=== PATIENT | female | born 1995 | race Caucasian/White ===

== ENCOUNTER 2016-12-21 03:57 | Emergency (ER) | payer MEDICAID ==
[~2016-12-21] VITALS: Ht 157.5 cm; Wt 47.2 kg
[2016-12-21 04:32] LABS: BASOPHIL % 0.4 % (0-2); PLATELET COUNT 241 x10^3mcL (130-400); RED CELL DISTRIBUTION WIDTH 12.8 % (11.5-14.5)
[2016-12-21 04:33] LABS: UA SPECIFIC GRAVITY 1.025 (1.005-1.035); microscopic required? YES; urine erythrocyte 3+ (NEGATIVE)
[2016-12-21 04:36] LABS: CARBON DIOXIDE 25.5 mmol/L (21-32); CHLORIDE SERUM 105 mmol/L (98-107); CREATININE SERUM 0.8 mg/dL (0.6-1.0); GFR1 > 60 mL/min; GLUCOSE SERUM 99 mg/dL (74-106); POTASSIUM SERUM 3.7 mmol/L (3.5-5.1); SODIUM SERUM 141 mmol/L (136-145)
[2016-12-21 04:40] LABS: ALBUMIN 4.4 g/dL (3.4-5.0); ALKALINE PHOSPHATASE 52 U/L (46-116); ALT/SGPT 17 U/L (14-59); AST/SGOT 14 U/L (15-37); BILIRUBIN TOTAL 0.76 mg/dL (0.20-1.00); TOTAL PROTEIN, SERUM 7.7 g/dL (6.4-8.2)
[2016-12-21 06:50] VITALS: BP 122/78
== END 2016-12-21 06:50 | disposition home or self-care (01) ==
LOC: ED 03:57
PROVIDERS: Emergency Medicine
DX: R10.31 Right lower quadrant pain (principal); R11.0 Nausea
CPT/HCPCS: J1885; Q0092

== ENCOUNTER 2017-04-02 03:13 | Emergency (ER) | payer MEDICAID ==
[2017-04-02 05:48] VITALS: BP 119/59
== END 2017-04-02 05:48 | disposition left against medical advice (07) ==
LOC: ED 03:13
DX: Z53.21 Procedure and treatment not carried out due to patient leaving prior to being seen by health care provider (principal)

== ENCOUNTER 2017-10-03 08:38 | Emergency (ER) | payer MEDICAID ==
[~2017-10-03] VITALS: Ht 157.5 cm; Wt 47.2 kg
[2017-10-03 09:34] VITALS: Ht 157.5 cm; Wt 47.2 kg
[2017-10-03 11:24] VITALS: BP 96/69
== END 2017-10-03 11:24 | disposition home or self-care (01) ==
LOC: ED 08:38
DX: R05 Cough (principal); R06.02 Shortness of breath
CPT/HCPCS: J7620

== ENCOUNTER 2018-05-11 12:12 | Emergency (ER) | payer MEDICAID ==
[~2018-05-11] VITALS: Ht 157.5 cm; Wt 45.9 kg
[2018-05-11 12:15] VITALS: BP 127/81
[2018-05-11 12:41] LABS: BASOPHIL % 0.5 % (0-2); PLATELET COUNT 300 x10^3mcL (130-400); RED CELL DISTRIBUTION WIDTH 12.8 % (11.5-14.5)
[2018-05-11 13:17] LABS: CALCIUM 9.1 mg/dL (8.5-10.1); CARBON DIOXIDE 26.9 mmol/L (21-32); CHLORIDE SERUM 105 mmol/L (98-107); CREATININE SERUM 0.6 mg/dL (0.6-1.0); GFR1 > 60 mL/min; GLUCOSE SERUM 106 mg/dL (74-106); POTASSIUM SERUM 3.5 mmol/L (3.5-5.1); SODIUM SERUM 139 mmol/L (136-145)
== END 2018-05-11 13:29 | disposition home or self-care (01) ==
LOC: ED 12:12
PROVIDERS: Emergency Medicine
DX: R53.1 Weakness (principal); J04.0 Acute laryngitis; R42 Dizziness and giddiness; R11.0 Nausea
CPT/HCPCS: 36415; J7512

== ENCOUNTER 2018-11-04 09:19 | Emergency (ER) | payer MEDICAID ==
[~2018-11-04] VITALS: Ht 157.5 cm; Wt 46.7 kg
[2018-11-04 09:35] VITALS: BP 103/44; Ht 157.5 cm; Wt 46.7 kg
== END 2018-11-04 10:16 | disposition home or self-care (01) ==
LOC: ED 09:19
DX: N30.00 Acute cystitis without hematuria (principal)

== ENCOUNTER 2019-01-22 09:41 | Emergency (ER) | payer MEDICAID ==
[~2019-01-22] VITALS: Ht 157.5 cm; Wt 46.3 kg
[2019-01-22 09:42] VITALS: Ht 157.5 cm; Wt 46.3 kg
[2019-01-22 11:02] VITALS: BP 108/72
== END 2019-01-22 11:02 | disposition home or self-care (01) ==
LOC: ED 09:41
DX: J03.00 Acute streptococcal tonsillitis, unspecified (principal); Z98.890 Other specified postprocedural states
CPT/HCPCS: J1100

== ENCOUNTER 2019-05-30 08:19 | Emergency (ER) | payer MEDICAID ==
[~2019-05-30] VITALS: Ht 157.5 cm; Wt 48.3 kg
[2019-05-30 08:24] VITALS: Ht 157.5 cm; Wt 48.3 kg
[2019-05-30 09:13] LABS: PLATELET COUNT 236 x10^3mcL (130-400); RED CELL DISTRIBUTION WIDTH 12.4 % (11.5-14.5)
[2019-05-30 09:20] LABS: CALCIUM 8.9 mg/dL (8.5-10.1); CARBON DIOXIDE 24.9 mmol/L (21-32); CHLORIDE SERUM 103 mmol/L (98-107); CREATININE SERUM 0.7 mg/dL (0.6-1.0); GFR1 > 60 mL/min; GLUCOSE SERUM 85 mg/dL (74-106); POTASSIUM SERUM 4.3 mmol/L (3.5-5.1); SODIUM SERUM 141 mmol/L (136-145)
[2019-05-30 09:24] LABS: ALBUMIN 4.3 g/dL (3.4-5.0); ALKALINE PHOSPHATASE 45 U/L (46-116); ALT/SGPT 16 U/L (14-59); AST/SGOT 18 U/L (15-37); BILIRUBIN TOTAL 1.2 mg/dL (0.20-1.00); TOTAL PROTEIN, SERUM 8.2 g/dL (6.4-8.2)
[2019-05-30 10:31] LABS: UA SPECIFIC GRAVITY 1.015 (1.005-1.035); microscopic required? YES; urine erythrocyte 3+ (NEGATIVE)
[2019-05-30 13:46] VITALS: BP 130/77
== END 2019-05-30 13:46 | disposition home or self-care (01) ==
LOC: ED 08:19
PROVIDERS: Emergency Medicine
DX: N83.202 Unspecified ovarian cyst, left side (principal); R10.30 Lower abdominal pain, unspecified
CPT/HCPCS: 36415; J1885

== ENCOUNTER 2019-05-31 08:49 | Emergency (ER) | payer MEDICAID ==
[~2019-05-31] VITALS: Ht 157.5 cm; Wt 48.3 kg
[2019-05-31 08:54] VITALS: Ht 157.5 cm; Wt 48.3 kg
[2019-05-31 10:41] LABS: BASOPHIL % 1.1 % (0-2); PLATELET COUNT 245 x10^3mcL (130-400); RED CELL DISTRIBUTION WIDTH 12.7 % (11.5-14.5)
[2019-05-31 10:49] LABS: CALCIUM 8.5 mg/dL (8.5-10.1); CARBON DIOXIDE 26.9 mmol/L (21-32); CHLORIDE SERUM 104 mmol/L (98-107); CREATININE SERUM 0.8 mg/dL (0.6-1.0); GFR1 > 60 mL/min; GLUCOSE SERUM 88 mg/dL (74-106); POTASSIUM SERUM 3.5 mmol/L (3.5-5.1); SODIUM SERUM 142 mmol/L (136-145)
[2019-05-31 10:54] LABS: ALBUMIN 4.1 g/dL (3.4-5.0); ALKALINE PHOSPHATASE 47 U/L (46-116); ALT/SGPT 17 U/L (14-59); AST/SGOT 12 U/L (15-37); BILIRUBIN TOTAL 1.08 mg/dL (0.20-1.00); LIPASE 175 IU/L (73-393); TOTAL PROTEIN, SERUM 7.9 g/dL (6.4-8.2)
[2019-05-31 11:22] LABS: UA SPECIFIC GRAVITY 1.015 (1.005-1.035); microscopic required? YES; urine erythrocyte 2+ (NEGATIVE)
[2019-05-31 14:14] VITALS: BP 93/55
== END 2019-05-31 14:15 | disposition home or self-care (01) ==
LOC: ED 08:49
PROVIDERS: Emergency Medicine
DX: N94.89 Other specified conditions associated with female genital organs and menstrual cycle (principal); N83.202 Unspecified ovarian cyst, left side
CPT/HCPCS: J1885; J2405; Q9967

== ENCOUNTER 2019-09-21 11:37 | Emergency (ER) | payer MEDICAID ==
[~2019-09-21] VITALS: Ht 157.5 cm; Wt 49.9 kg
[2019-09-21 11:54] VITALS: BP 140/82; Ht 157.5 cm; Wt 49.9 kg
== END 2019-09-21 12:36 | disposition home or self-care (01) ==
LOC: ED 11:37
DX: L50.9 Urticaria, unspecified (principal); Z98.890 Other specified postprocedural states

== ENCOUNTER 2019-12-16 16:26 | Emergency (ER) | payer MEDICAID ==
[~2019-12-16] VITALS: Ht 152.4 cm; Wt 50.8 kg
[2019-12-16 16:32] VITALS: BP 112/67; Ht 152.4 cm; Wt 50.8 kg
== END 2019-12-16 17:24 | disposition home or self-care (01) ==
LOC: ED 16:26
DX: J30.9 Allergic rhinitis, unspecified (principal); M54.6 Pain in thoracic spine

== ENCOUNTER 2020-06-15 09:37 | Emergency (ER) | payer MEDICAID ==
[~2020-06-15] VITALS: Ht 157.5 cm; Wt 51.7 kg
[2020-06-15 09:47] VITALS: Ht 157.5 cm; Wt 51.7 kg
[2020-06-15 10:44] LABS: UA SPECIFIC GRAVITY 1.015 (1.005-1.035); microscopic required? YES; urine erythrocyte 2+ (NEGATIVE)
[2020-06-15 11:28] VITALS: BP 110/71
== END 2020-06-15 13:48 | disposition home or self-care (01) ==
LOC: ED 09:37
PROVIDERS: Emergency Medicine
DX: N72 Inflammatory disease of cervix uteri (principal)
CPT/HCPCS: 87491; 87591; J0696